=== PATIENT | female | born 1945 | race Caucasian/White ===

== ENCOUNTER 2019-08-31 17:20 | Inpatient (IN) ==
[2019-08-31] MEDS ORDERED: Dextrose Gel 15 GM/37.5 ML TUBE PO PRN ×2 (18:47)
[2019-08-31] MEDS ORDERED: *HR* Dextrose 50 % in Water (Syg) 50 ML SYRINGE IVP PRN (18:47)
[2019-08-31] MEDS ORDERED: D5% in Water 1,000 ML IVC PRN (18:47)
[2019-08-31] MEDS ORDERED: Insulin DETEMIR 100 UNIT/ML per UNIT SQ ONE (20:45)
[2019-08-31] MEDS: Metoprolol XL (24 HR) Succ 50 MG TAB.ER.24H PO SCH (21:15)
[2019-08-31] MEDS: Insulin LISPRO 300 UNITS/3 ML VIAL SQ SCH (21:15)
[2019-08-31] MEDS: Mirtazapine 15 MG TABLET PO SCH (21:15)
[2019-08-31] MEDS: *HR* Rivaroxaban 10 MG TABLET PO SCH (21:15)
[2019-08-31] MEDS: FLUoxetine 20 MG CAPSULE PO SCH (21:15)
[2019-08-31] MEDS: Carbidopa/Levodopa 25/100 TABLET PO SCH (21:15)
[2019-09-01 07:29] LABS: BUN/Creatinine Ratio 18 (6-26); Blood Urea Nitrogen 19 mg/dL (8-23); Carbon Dioxide 24 mEq/L (23-29); Chloride 107 mEq/L (98-107); Glucose 120 mg/dL (70-105); Osmolality,Calculated 291 (280-300); Potassium 3.4 mEq/L (3.5-5.1); Sodium 139 mEq/L (136-145); eGFR For African Americans > 60 (> 60); eGFR For Non-African Americans 50 (> 60)
[2019-09-01 07:31] LABS: Hematocrit 33.2 % (35.3-44.9); Hemoglobin 11.2 g/dL (11.5-15.4); Mean Corpuscular HGB Conc 33.7 g/dL (31.6-35.5); Mean Corpuscular Hemoglobin 29.3 pg (28.0-33.3); Mean Corpuscular Volume 86.9 fL (83.0-100.0); Nucleated Red Blood Cells 1.4 /100 WBC (0); Platelet Count 105 K/mcL (140-400); Red Blood Count 3.82 M/mcL (3.82-4.97); Red Cell Distribution Width 19.2 % (11.5-14.5); White Blood Count 5.9 K/mcL (4.3-11.1)
[2019-09-01] MEDS: Insulin LISPRO 300 UNITS/3 ML VIAL SQ SCH ×4 (07:39→19:37)
[2019-09-01 07:45] LABS: Prothrombin Time 20.7 Seconds (9.4-12.1)
[2019-09-01 07:46] LABS: Activated Partial Thrombo Time 41.1 Seconds (26.0-36.0); INR 1.8
[2019-09-01 07:57] LABS: Lymphocytes # 0.6 K/mcL (0.6-4.6); Monocytes # 0.1 K/mcL (0.0-1.3); Neutrophils # 5.1 K/mcL (1.6-8.9)
[2019-09-01 07:58] LABS: Anisocytosis 1+ (Not Present); Platelet Estimate Decreased (Normal)
[2019-09-01] MEDS: Carbidopa/Levodopa 25/100 TABLET PO SCH ×2 (08:20→19:38)
[2019-09-01] MEDS: Aspirin Enteric Coated 81 MG Tablet PO SCH (08:20)
[2019-09-01] MEDS: FLUoxetine 20 MG CAPSULE PO SCH ×2 (08:20→19:38)
[2019-09-01] MEDS ORDERED: *HR* Dextrose 50 % in Water (Vial) 50 ML VIAL IVP PRN (08:30)
[2019-09-01] MEDS: NIFEdipine XL (24 HR) 30 MG TAB.ER.24 PO SCH (17:24)
[2019-09-01] MEDS: Mirtazapine 15 MG TABLET PO SCH (19:38)
[2019-09-01] MEDS: *HR* Rivaroxaban 10 MG TABLET PO SCH (19:38)
[2019-09-01] MEDS: Metoprolol XL (24 HR) Succ 50 MG TAB.ER.24H PO SCH (19:38)
[2019-09-01] MEDS: Insulin DETEMIR 100 UNIT/ML X5UNITS SQ SCH (19:38)
[2019-09-02 07:15] LABS: Alanine Aminotransferase 2 Units/L (7-52); Albumin 2.9 g/dL (3.5-5.7); Albumin/Globulin Ratio 1.5 (1.1-2.2); Alkaline Phosphatase 57 Units/L (34-104); Aspartate Amino Transferase 15 Units/L (13-39); BUN/Creatinine Ratio 17 (6-26); Blood Urea Nitrogen 17 mg/dL (8-23); Calcium 6.7 mg/dL (8.6-10.3); Carbon Dioxide 24 mEq/L (23-29); Chloride 111 mEq/L (98-107); Globulin 1.9 g/dL (2.4-3.5); Glucose 89 mg/dL (70-105); Osmolality,Calculated 293 (280-300); Potassium 2.9 mEq/L (3.5-5.1); Sodium 141 mEq/L (136-145); Thyroid Stimulating Hormone 13.021 mcIU/mL (0.340-5.600); Total Protein 4.8 g/dL (6.4-8.9); Uric Acid 9.6 mg/dL (2.3-7.6); eGFR For African Americans > 60 (> 60); eGFR For Non-African Americans 53 (> 60)
[2019-09-02] MEDS: Insulin LISPRO 300 UNITS/3 ML VIAL SQ SCH ×4 (07:42→20:00)
[2019-09-02] MEDS: FLUoxetine 20 MG CAPSULE PO SCH ×2 (08:28→19:58)
[2019-09-02] MEDS: Aspirin Enteric Coated 81 MG Tablet PO SCH (08:28)
[2019-09-02] MEDS: Carbidopa/Levodopa 25/100 TABLET PO SCH ×2 (08:29→19:58)
[2019-09-02 09:10] LABS: Ferritin 200 ng/mL (10-120)
[2019-09-02 09:29] LABS: Estimated Average Glucose 189 mg/dl
[2019-09-02 12:17] LABS: Folate 18.4 ng/mL (3.0-16.0)
[2019-09-02] MEDS: *HR* Rivaroxaban 15 MG TABLET PO SCH (17:19)
[2019-09-02] MEDS: NIFEdipine XL (24 HR) 30 MG TAB.ER.24 PO SCH (17:19)
[2019-09-02] MEDS: Metoprolol XL (24 HR) Succ 50 MG TAB.ER.24H PO SCH (19:58)
[2019-09-02] MEDS: Mirtazapine 15 MG TABLET PO SCH (19:58)
[2019-09-02] MEDS: Insulin DETEMIR 100 UNIT/ML X5UNITS SQ SCH (19:59)
[2019-09-03 05:39] LABS: Basophils # 0.1 K/mcL (0.0-0.2); Basophils % 1.2 %; Eosinophils # 0.1 K/mcL (0.0-0.6); Eosinophils % 1.6 %; Hematocrit 30.1 % (35.3-44.9); Lymphocytes # 0.7 K/mcL (0.6-4.6); Lymphocytes % 13.4 %; Mean Corpuscular HGB Conc 33.2 g/dL (31.6-35.5); Mean Corpuscular Hemoglobin 29.1 pg (28.0-33.3); Mean Corpuscular Volume 87.5 fL (83.0-100.0); Monocytes # 0.3 K/mcL (0.0-1.3); Monocytes % 5.2 %; Neutrophils # 3.8 K/mcL (1.6-8.9); Nucleated Red Blood Cells 1.2 /100 WBC (0); Red Blood Count 3.44 M/mcL (3.82-4.97); Red Cell Distribution Width 19.9 % (11.5-14.5); Segmented Neutrophils % 73.6 %; White Blood Count 5.2 K/mcL (4.3-11.1)
[2019-09-03 05:42] LABS: Platelet Count 84 K/mcL (140-400)
[2019-09-03 06:12] LABS: BUN/Creatinine Ratio 16 (6-26); Blood Urea Nitrogen 17 mg/dL (8-23); Carbon Dioxide 23 mEq/L (23-29); Chloride 111 mEq/L (98-107); Glucose 98 mg/dL (70-105); Magnesium 1.5 mg/dL (1.6-2.6); Osmolality,Calculated 300 (280-300); Potassium 3.3 mEq/L (3.5-5.1); Sodium 144 mEq/L (136-145); eGFR For African Americans > 60 (> 60); eGFR For Non-African Americans 50 (> 60)
[2019-09-03] MEDS: Carbidopa/Levodopa 25/100 TABLET PO SCH ×2 (07:52→19:59)
[2019-09-03] MEDS: Aspirin Enteric Coated 81 MG Tablet PO SCH (07:52)
[2019-09-03] MEDS: FLUoxetine 20 MG CAPSULE PO SCH ×2 (07:53→19:59)
[2019-09-03] MEDS: Cholecalciferol (D-3) 1,000 UNIT (25MCG) TABLET PO SCH (07:53)
[2019-09-03] MEDS: Insulin LISPRO 300 UNITS/3 ML VIAL SQ SCH ×4 (07:57→20:00)
[2019-09-03] MEDS: *HR* Rivaroxaban 15 MG TABLET PO SCH (16:51)
[2019-09-03] MEDS: Magnesium Oxide 400 MG TABLET PO SCH (16:51)
[2019-09-03] MEDS: NIFEdipine XL (24 HR) 30 MG TAB.ER.24 PO SCH (16:51)
[2019-09-03] MEDS: Mirtazapine 15 MG TABLET PO SCH (19:59)
[2019-09-03] MEDS: Insulin DETEMIR 100 UNIT/ML X5UNITS SQ SCH (20:00)
[2019-09-03] MEDS: Metoprolol XL (24 HR) Succ 50 MG TAB.ER.24H PO SCH (20:05)
[2019-09-04 06:17] LABS: Basophils % 0.7 %; Eosinophils # 0.1 K/mcL (0.0-0.6); Eosinophils % 1.7 %; Hematocrit 24.6 % (35.3-44.9); Hemoglobin 8.1 g/dL (11.5-15.4); Immature Granulocytes % 6.3 % (0-4); Lymphocytes # 0.6 K/mcL (0.6-4.6); Lymphocytes % 14.9 %; Mean Corpuscular HGB Conc 32.9 g/dL (31.6-35.5); Mean Corpuscular Hemoglobin 29.2 pg (28.0-33.3); Mean Corpuscular Volume 88.8 fL (83.0-100.0); Monocytes # 0.2 K/mcL (0.0-1.3); Monocytes % 5.6 %; Neutrophils # 2.9 K/mcL (1.6-8.9); Red Blood Count 2.77 M/mcL (3.82-4.97); Red Cell Distribution Width 20.6 % (11.5-14.5); Segmented Neutrophils % 70.8 %; White Blood Count 4.1 K/mcL (4.3-11.1)
[2019-09-04 06:25] LABS: Platelet Count 72 K/mcL (140-400)
[2019-09-04 07:47] LABS: BUN/Creatinine Ratio 18 (6-26); Blood Urea Nitrogen 18 mg/dL (8-23); Calcium 6.9 mg/dL (8.6-10.3); Carbon Dioxide 22 mEq/L (23-29); Chloride 114 mEq/L (98-107); Glucose 109 mg/dL (70-105); Osmolality,Calculated 300 (280-300); Potassium 3.6 mEq/L (3.5-5.1); Sodium 144 mEq/L (136-145); eGFR For African Americans > 60 (> 60); eGFR For Non-African Americans 54 (> 60)
[2019-09-04 08:03] LABS: Platelet Estimate Decreased (Normal)
[2019-09-04] MEDS: Carbidopa/Levodopa 25/100 TABLET PO SCH ×2 (08:36→21:22)
[2019-09-04] MEDS: Aspirin Enteric Coated 81 MG Tablet PO SCH (08:36)
[2019-09-04] MEDS: Magnesium Oxide 400 MG TABLET PO SCH (08:36)
[2019-09-04] MEDS: FLUoxetine 20 MG CAPSULE PO SCH ×2 (08:36→21:21)
[2019-09-04] MEDS: Cholecalciferol (D-3) 1,000 UNIT (25MCG) TABLET PO SCH (08:36)
[2019-09-04] MEDS: Insulin LISPRO 300 UNITS/3 ML VIAL SQ SCH ×4 (08:37→21:22)
[2019-09-04] MEDS: *HR* Rivaroxaban 15 MG TABLET PO SCH (16:55)
[2019-09-04] MEDS: NIFEdipine XL (24 HR) 30 MG TAB.ER.24 PO SCH (16:55)
[2019-09-04] MEDS ORDERED: Acetaminophen 325 MG TABLET PO PRN (18:45)
[2019-09-04] MEDS: Mirtazapine 15 MG TABLET PO SCH (21:21)
[2019-09-04] MEDS: Insulin DETEMIR 100 UNIT/ML X5UNITS SQ SCH (21:22)
[2019-09-04] MEDS: Metoprolol XL (24 HR) Succ 50 MG TAB.ER.24H PO SCH (21:22)
[2019-09-05 07:01] LABS: Basophils % 0.8 %; Eosinophils # 0.1 K/mcL (0.0-0.6); Eosinophils % 1.3 %; Hematocrit 24.6 % (35.3-44.9); Hemoglobin 7.8 g/dL (11.5-15.4); Immature Granulocytes % 4.9 % (0-4); Lymphocytes # 0.7 K/mcL (0.6-4.6); Lymphocytes % 18.4 %; Mean Corpuscular HGB Conc 31.7 g/dL (31.6-35.5); Mean Corpuscular Volume 91.4 fL (83.0-100.0); Monocytes # 0.3 K/mcL (0.0-1.3); Neutrophils # 2.6 K/mcL (1.6-8.9); Nucleated Red Blood Cells 2.6 /100 WBC (0); Platelet Count 126 K/mcL (140-400); Red Blood Count 2.69 M/mcL (3.82-4.97); Segmented Neutrophils % 67.6 %; White Blood Count 3.9 K/mcL (4.3-11.1)
[2019-09-05 07:12] LABS: Platelet Estimate Normal (Normal)
[2019-09-05 07:39] LABS: Alanine Aminotransferase 3 Units/L (7-52); Albumin 3.3 g/dL (3.5-5.7); Albumin/Globulin Ratio 1.7 (1.1-2.2); Alkaline Phosphatase 65 Units/L (34-104); Aspartate Amino Transferase 22 Units/L (13-39); BUN/Creatinine Ratio 20 (6-26); Bilirubin,Total 2.2 mg/dL (0.3-1.0); Blood Urea Nitrogen 20 mg/dL (8-23); Calcium 7.1 mg/dL (8.6-10.3); Carbon Dioxide 23 mEq/L (23-29); Chloride 113 mEq/L (98-107); Glucose 101 mg/dL (70-105); Magnesium 1.6 mg/dL (1.6-2.6); Osmolality,Calculated 301 (280-300); Sodium 144 mEq/L (136-145); Total Protein 5.3 g/dL (6.4-8.9); eGFR For African Americans > 60 (> 60); eGFR For Non-African Americans 53 (> 60)
[2019-09-05] MEDS: Insulin LISPRO 300 UNITS/3 ML VIAL SQ SCH ×4 (08:09→20:24)
[2019-09-05] MEDS: Cholecalciferol (D-3) 1,000 UNIT (25MCG) TABLET PO SCH (08:26)
[2019-09-05] MEDS: Carbidopa/Levodopa 25/100 TABLET PO SCH ×2 (08:26→20:34)
[2019-09-05] MEDS: Magnesium Oxide 400 MG TABLET PO SCH (08:27)
[2019-09-05] MEDS: FLUoxetine 20 MG CAPSULE PO SCH ×2 (08:27→20:34)
[2019-09-05] MEDS: Aspirin Enteric Coated 81 MG Tablet PO SCH (08:28)
[2019-09-05] MEDS: NIFEdipine XL (24 HR) 30 MG TAB.ER.24 PO SCH (17:30)
[2019-09-05] MEDS: *HR* Rivaroxaban 15 MG TABLET PO SCH (17:31)
[2019-09-05] MEDS: Mirtazapine 15 MG TABLET PO SCH (20:34)
[2019-09-05] MEDS: Insulin DETEMIR 100 UNIT/ML X5UNITS SQ SCH (20:34)
[2019-09-05] MEDS: Metoprolol XL (24 HR) Succ 50 MG TAB.ER.24H PO SCH (20:35)
[2019-09-06 05:27] LABS: Basophils % 0.8 %; Eosinophils % 1.1 %; Hemoglobin 7.1 g/dL (11.5-15.4); Immature Granulocytes % 3.6 % (0-4); Lymphocytes # 0.7 K/mcL (0.6-4.6); Lymphocytes % 20.4 %; Mean Corpuscular HGB Conc 32.3 g/dL (31.6-35.5); Mean Corpuscular Hemoglobin 29.3 pg (28.0-33.3); Mean Corpuscular Volume 90.9 fL (83.0-100.0); Monocytes # 0.3 K/mcL (0.0-1.3); Monocytes % 8.3 %; Neutrophils # 2.4 K/mcL (1.6-8.9); Nucleated Red Blood Cells 2.5 /100 WBC (0); Red Blood Count 2.42 M/mcL (3.82-4.97); Red Cell Distribution Width 22.4 % (11.5-14.5); Segmented Neutrophils % 65.8 %; White Blood Count 3.6 K/mcL (4.3-11.1)
[2019-09-06 05:28] LABS: Platelet Count 79 K/mcL (140-400)
[2019-09-06 05:44] LABS: Alanine Aminotransferase 4 Units/L (7-52); Albumin 3.2 g/dL (3.5-5.7); Albumin/Globulin Ratio 1.7 (1.1-2.2); Alkaline Phosphatase 61 Units/L (34-104); Aspartate Amino Transferase 21 Units/L (13-39); BUN/Creatinine Ratio 22 (6-26); Bilirubin,Total 1.5 mg/dL (0.3-1.0); Blood Urea Nitrogen 22 mg/dL (8-23); Calcium 7.2 mg/dL (8.6-10.3); Carbon Dioxide 25 mEq/L (23-29); Chloride 112 mEq/L (98-107); Globulin 1.9 g/dL (2.4-3.5); Glucose 158 mg/dL (70-105); Osmolality,Calculated 303 (280-300); Sodium 143 mEq/L (136-145); Total Protein 5.1 g/dL (6.4-8.9); eGFR For African Americans > 60 (> 60); eGFR For Non-African Americans 54 (> 60)
[2019-09-06 05:51] LABS: Anisocytosis 2+ (Not Present); Microcytosis Present (Not Present); Ovalocytes 2+ (Not Present); Tear Drop Cells 1+ (Not Present)
[2019-09-06 05:52] LABS: Platelet Estimate Decreased (Normal)
[2019-09-06] MEDS: Insulin LISPRO 300 UNITS/3 ML VIAL SQ SCH ×4 (08:34→20:39)
[2019-09-06] MEDS: Cholecalciferol (D-3) 1,000 UNIT (25MCG) TABLET PO SCH (08:35)
[2019-09-06] MEDS: Magnesium Oxide 400 MG TABLET PO SCH (08:35)
[2019-09-06] MEDS: Carbidopa/Levodopa 25/100 TABLET PO SCH ×2 (08:35→20:38)
[2019-09-06] MEDS: FLUoxetine 20 MG CAPSULE PO SCH ×2 (08:35→20:38)
[2019-09-06] MEDS: NIFEdipine XL (24 HR) 30 MG TAB.ER.24 PO SCH (17:09)
[2019-09-06] MEDS: *HR* Rivaroxaban 15 MG TABLET PO SCH (17:09)
[2019-09-06] MEDS: Mirtazapine 15 MG TABLET PO SCH (20:38)
[2019-09-06] MEDS: Metoprolol XL (24 HR) Succ 50 MG TAB.ER.24H PO SCH (20:38)
[2019-09-06] MEDS: Insulin DETEMIR 100 UNIT/ML X5UNITS SQ SCH (20:39)
[2019-09-07 06:39] LABS: Basophils % 0.8 %; Eosinophils % 1.1 %; Hematocrit 21.9 % (35.3-44.9); Hemoglobin 7.1 g/dL (11.5-15.4); Immature Granulocytes % 4.9 % (0-4); Lymphocytes # 0.7 K/mcL (0.6-4.6); Lymphocytes % 18.2 %; Mean Corpuscular HGB Conc 32.4 g/dL (31.6-35.5); Mean Corpuscular Volume 92.4 fL (83.0-100.0); Monocytes # 0.2 K/mcL (0.0-1.3); Monocytes % 6.3 %; Neutrophils # 2.5 K/mcL (1.6-8.9); Nucleated Red Blood Cells 2.2 /100 WBC (0); Red Blood Count 2.37 M/mcL (3.82-4.97); Red Cell Distribution Width 22.5 % (11.5-14.5); Segmented Neutrophils % 68.7 %; White Blood Count 3.7 K/mcL (4.3-11.1)
[2019-09-07 06:44] LABS: Platelet Count 83 K/mcL (140-400)
[2019-09-07 07:42] LABS: Anisocytosis 2+ (Not Present); Microcytosis Present (Not Present)
[2019-09-07 07:43] LABS: Platelet Estimate Decreased (Normal)
[2019-09-07 07:47] LABS: Polychromasia 1+ (Not Present)
[2019-09-07 07:48] LABS: Ovalocytes 1+ (Not Present)
[2019-09-07 07:50] LABS: Tear Drop Cells 1+ (Not Present)
[2019-09-07] MEDS: Cholecalciferol (D-3) 1,000 UNIT (25MCG) TABLET PO SCH (08:04)
[2019-09-07] MEDS: Magnesium Oxide 400 MG TABLET PO SCH (08:05)
[2019-09-07] MEDS: Carbidopa/Levodopa 25/100 TABLET PO SCH ×2 (08:05→19:59)
[2019-09-07] MEDS: FLUoxetine 20 MG CAPSULE PO SCH ×2 (08:05→19:59)
[2019-09-07] MEDS: Insulin LISPRO 300 UNITS/3 ML VIAL SQ SCH ×4 (08:07→19:59)
[2019-09-07] MEDS: *HR* Rivaroxaban 15 MG TABLET PO SCH (17:01)
[2019-09-07] MEDS: NIFEdipine XL (24 HR) 30 MG TAB.ER.24 PO SCH (17:01)
[2019-09-07] MEDS: Insulin DETEMIR 100 UNIT/ML X5UNITS SQ SCH (19:59)
[2019-09-07] MEDS: Metoprolol XL (24 HR) Succ 50 MG TAB.ER.24H PO SCH (19:59)
[2019-09-07] MEDS: Mirtazapine 15 MG TABLET PO SCH (19:59)
[2019-09-08 07:04] LABS: Basophils % 1.1 %; Eosinophils % 1.1 %; Hematocrit 22.2 % (35.3-44.9); Hemoglobin 7.1 g/dL (11.5-15.4); Lymphocytes # 0.7 K/mcL (0.6-4.6); Lymphocytes % 18.5 %; Mean Corpuscular Hemoglobin 29.8 pg (28.0-33.3); Mean Corpuscular Volume 93.3 fL (83.0-100.0); Monocytes # 0.2 K/mcL (0.0-1.3); Monocytes % 4.3 %; Neutrophils # 2.5 K/mcL (1.6-8.9); Nucleated Red Blood Cells 3.4 /100 WBC (0); Red Blood Count 2.38 M/mcL (3.82-4.97); Red Cell Distribution Width 23.2 % (11.5-14.5); White Blood Count 3.5 K/mcL (4.3-11.1)
[2019-09-08 07:14] LABS: Platelet Count 93 K/mcL (140-400)
[2019-09-08 07:21] LABS: Albumin 3.4 g/dL (3.5-5.7); Albumin/Globulin Ratio 1.8 (1.1-2.2); Bilirubin,Total 1.3 mg/dL (0.3-1.0); Calcium 7.6 mg/dL (8.6-10.3); Globulin 1.9 g/dL (2.4-3.5); Magnesium 1.8 mg/dL (1.6-2.6); Total Protein 5.3 g/dL (6.4-8.9)
[2019-09-08 07:39] LABS: Platelet Estimate Decreased (Normal)
[2019-09-08 07:40] LABS: Anisocytosis 2+ (Not Present)
[2019-09-08 07:41] LABS: Hypochromasia Present (Not Present); Microcytosis Present (Not Present)
[2019-09-08] MEDS: Insulin LISPRO 300 UNITS/3 ML VIAL SQ SCH ×3 (08:55→16:02)
[2019-09-08] MEDS: Magnesium Oxide 400 MG TABLET PO SCH (09:33)
[2019-09-08] MEDS: FLUoxetine 20 MG CAPSULE PO SCH (09:33)
[2019-09-08] MEDS: Carbidopa/Levodopa 25/100 TABLET PO SCH (09:34)
[2019-09-08] MEDS: Cholecalciferol (D-3) 1,000 UNIT (25MCG) TABLET PO SCH (09:34)
[2019-09-08] MEDS: NIFEdipine XL (24 HR) 30 MG TAB.ER.24 PO SCH (16:47)
[2019-09-08 18:17] VITALS: BP 140/64
== END 2019-09-08 18:30 | disposition home health service (06) | DRG 57 ==
LOC: INPPIK 17:45
PROVIDERS: ADMIT Internal Medicine; ATTEND Internal Medicine

== ENCOUNTER 2019-10-22 14:15 | Inpatient (IN) ==
[2019-10-22] MEDS: Insulin LISPRO 300 UNITS/3 ML VIAL SQ SCH (17:13)
[2019-10-22] MEDS: Carbidopa/Levodopa 25/100 TABLET PO SCH ×2 (17:16→19:57)
[2019-10-22] MEDS: *HR* Rivaroxaban 15 MG TABLET PO SCH (17:16)
[2019-10-22] MEDS: Aspirin Enteric Coated 81 MG Tablet PO SCH (19:56)
[2019-10-22] MEDS: Insulin DETEMIR 100 UNIT/ML X5UNITS SQ SCH (19:57)
[2019-10-22] MEDS: FLUoxetine 20 MG CAPSULE PO SCH (19:59)
[2019-10-23] MEDS: Insulin LISPRO 300 UNITS/3 ML VIAL SQ SCH ×3 (07:49→16:43)
[2019-10-23 07:54] LABS: Basophils % 0.6 %; Eosinophils # 0.1 K/mcL (0.0-0.6); Eosinophils % 1.5 %; Hematocrit 29.1 % (35.3-44.9); Hemoglobin 9.1 g/dL (11.5-15.4); Immature Granulocytes % 1.5 % (0-4); Lymphocytes # 0.4 K/mcL (0.6-4.6); Lymphocytes % 12.9 %; Mean Corpuscular HGB Conc 31.3 g/dL (31.6-35.5); Mean Corpuscular Hemoglobin 31.4 pg (28.0-33.3); Mean Corpuscular Volume 100.3 fL (83.0-100.0); Monocytes # 0.2 K/mcL (0.0-1.3); Monocytes % 5.1 %; Neutrophils # 2.6 K/mcL (1.6-8.9); Platelet Count 108 K/mcL (140-400); Red Cell Distribution Width 17.1 % (11.5-14.5); Segmented Neutrophils % 78.4 %; White Blood Count 3.3 K/mcL (4.3-11.1)
[2019-10-23 08:14] LABS: Calcium 7.2 mg/dL (8.6-10.3); Potassium 4.3 mEq/L (3.5-5.1)
[2019-10-23] MEDS: Spironolactone 25 MG TABLET PO SCH (09:08)
[2019-10-23] MEDS: Carbidopa/Levodopa 25/100 TABLET PO SCH ×3 (09:08→20:25)
[2019-10-23] MEDS: NIFEdipine XL (24 HR) 30 MG TAB.ER.24 PO SCH (09:09)
[2019-10-23] MEDS: FLUoxetine 20 MG CAPSULE PO SCH ×2 (09:09→20:25)
[2019-10-23] MEDS: Cholecalciferol (D-3) 1,000 UNIT (25MCG) TABLET PO SCH (09:09)
[2019-10-23] MEDS: Furosemide 20 MG TABLET PO SCH (09:09)
[2019-10-23] MEDS: Magnesium Oxide 400 MG TABLET PO SCH (09:09)
[2019-10-23] MEDS: *HR* Rivaroxaban 15 MG TABLET PO SCH (16:43)
[2019-10-23] MEDS: Aspirin Enteric Coated 81 MG Tablet PO SCH (20:25)
[2019-10-23] MEDS: Insulin DETEMIR 100 UNIT/ML X5UNITS SQ SCH (20:26)
[2019-10-24] MEDS: Insulin LISPRO 300 UNITS/3 ML VIAL SQ SCH ×3 (07:19→17:09)
[2019-10-24] MEDS: NIFEdipine XL (24 HR) 30 MG TAB.ER.24 PO SCH (08:44)
[2019-10-24] MEDS: Cholecalciferol (D-3) 1,000 UNIT (25MCG) TABLET PO SCH (08:45)
[2019-10-24] MEDS: FLUoxetine 20 MG CAPSULE PO SCH ×2 (08:45→22:30)
[2019-10-24] MEDS: Magnesium Oxide 400 MG TABLET PO SCH (08:46)
[2019-10-24] MEDS: Carbidopa/Levodopa 25/100 TABLET PO SCH ×3 (08:46→22:30)
[2019-10-24] MEDS: Furosemide 20 MG TABLET PO SCH (08:46)
[2019-10-24] MEDS: Spironolactone 25 MG TABLET PO SCH (08:47)
[2019-10-24] MEDS: *HR* Rivaroxaban 15 MG TABLET PO SCH (17:09)
[2019-10-24] MEDS: Aspirin Enteric Coated 81 MG Tablet PO SCH (22:30)
[2019-10-24] MEDS: Insulin DETEMIR 100 UNIT/ML X5UNITS SQ SCH (22:30)
[2019-10-25] MEDS: Insulin LISPRO 300 UNITS/3 ML VIAL SQ SCH ×3 (08:40→16:55)
[2019-10-25] MEDS: Carbidopa/Levodopa 25/100 TABLET PO SCH ×3 (09:37→21:10)
[2019-10-25] MEDS: Cholecalciferol (D-3) 1,000 UNIT (25MCG) TABLET PO SCH (09:38)
[2019-10-25] MEDS: FLUoxetine 20 MG CAPSULE PO SCH ×2 (09:38→16:55)
[2019-10-25] MEDS: Magnesium Oxide 400 MG TABLET PO SCH (09:38)
[2019-10-25] MEDS: Furosemide 20 MG TABLET PO SCH (09:38)
[2019-10-25] MEDS: NIFEdipine XL (24 HR) 30 MG TAB.ER.24 PO SCH (09:38)
[2019-10-25] MEDS: Spironolactone 25 MG TABLET PO SCH (09:38)
[2019-10-25] MEDS: *HR* Rivaroxaban 15 MG TABLET PO SCH (16:55)
[2019-10-25] MEDS: Aspirin Enteric Coated 81 MG Tablet PO SCH (21:10)
[2019-10-25] MEDS: Insulin DETEMIR 100 UNIT/ML X5UNITS SQ SCH (21:10)
[2019-10-26] MEDS: Carbidopa/Levodopa 25/100 TABLET PO SCH ×3 (08:10→20:36)
[2019-10-26] MEDS: FLUoxetine 20 MG CAPSULE PO SCH ×2 (08:10→17:40)
[2019-10-26] MEDS: NIFEdipine XL (24 HR) 30 MG TAB.ER.24 PO SCH (08:10)
[2019-10-26] MEDS: Spironolactone 25 MG TABLET PO SCH (08:10)
[2019-10-26] MEDS: Cholecalciferol (D-3) 1,000 UNIT (25MCG) TABLET PO SCH (08:10)
[2019-10-26] MEDS: Furosemide 20 MG TABLET PO SCH (08:10)
[2019-10-26] MEDS: Magnesium Oxide 400 MG TABLET PO SCH (08:10)
[2019-10-26] MEDS: Insulin LISPRO 300 UNITS/3 ML VIAL SQ SCH ×3 (08:11→17:32)
[2019-10-26 09:55] LABS: Hematocrit 31.7 % (35.3-44.9); Hemoglobin 10.3 g/dL (11.5-15.4); Mean Corpuscular HGB Conc 32.5 g/dL (31.6-35.5); Mean Corpuscular Hemoglobin 31.6 pg (28.0-33.3); Mean Corpuscular Volume 97.2 fL (83.0-100.0); Platelet Count 132 K/mcL (140-400); Red Blood Count 3.26 M/mcL (3.82-4.97); Red Cell Distribution Width 16.8 % (11.5-14.5); White Blood Count 3.8 K/mcL (4.3-11.1)
[2019-10-26 10:20] LABS: BUN/Creatinine Ratio 18 (6-26); Blood Urea Nitrogen 19 mg/dL (8-23); Calcium 7.8 mg/dL (8.6-10.3); Carbon Dioxide 30 mEq/L (23-29); Chloride 103 mEq/L (98-107); Glucose 103 mg/dL (70-105); Osmolality,Calculated 293 (280-300); Potassium 3.9 mEq/L (3.5-5.1); Sodium 140 mEq/L (136-145); eGFR For African Americans > 60 (> 60); eGFR For Non-African Americans 50 (> 60)
[2019-10-26] MEDS: *HR* Rivaroxaban 15 MG TABLET PO SCH (17:01)
[2019-10-26] MEDS: Insulin DETEMIR 100 UNIT/ML X5UNITS SQ SCH (20:36)
[2019-10-26] MEDS: Aspirin Enteric Coated 81 MG Tablet PO SCH (20:36)
[2019-10-27 06:54] VITALS: BP 157/84
[2019-10-27] MEDS: NIFEdipine XL (24 HR) 30 MG TAB.ER.24 PO SCH (09:34)
[2019-10-27] MEDS: Cholecalciferol (D-3) 1,000 UNIT (25MCG) TABLET PO SCH (09:34)
[2019-10-27] MEDS: Spironolactone 25 MG TABLET PO SCH (09:34)
[2019-10-27] MEDS: Furosemide 20 MG TABLET PO SCH (09:34)
[2019-10-27] MEDS: Carbidopa/Levodopa 25/100 TABLET PO SCH (09:34)
[2019-10-27] MEDS: Magnesium Oxide 400 MG TABLET PO SCH (09:34)
[2019-10-27] MEDS: FLUoxetine 20 MG CAPSULE PO SCH (09:34)
[2019-10-27] MEDS: Insulin LISPRO 300 UNITS/3 ML VIAL SQ SCH ×2 (09:35→12:32)
== END 2019-10-27 14:15 | disposition home or self-care (01) | DRG 946 ==
LOC: INPPIK 14:16
PROVIDERS: ADMIT Family Medicine; ATTEND Family Medicine

== ENCOUNTER 2019-12-01 14:10 | Inpatient (IN) ==
[2019-12-01] MEDS ORDERED: *HR* OxyCODONE/APAP 5/325 TABLET PO PRN (15:05)
[2019-12-01] MEDS ORDERED: *HR* Dextrose 50 % in Water (Vial) 50 ML VIAL IVP PRN (17:33)
[2019-12-01] MEDS ORDERED: D5% in Water 1,000 ML IVC PRN (17:33)
[2019-12-01] MEDS ORDERED: Dextrose Gel 15 GM/37.5 ML TUBE PO PRN ×2 (17:33)
[2019-12-01] MEDS: *HR* Rivaroxaban 15 MG TABLET PO SCH (19:59)
[2019-12-01] MEDS: Mirtazapine 15 MG TABLET PO SCH (19:59)
[2019-12-01] MEDS: tiZANidine 4 MG TABLET PO SCH (20:00)
[2019-12-01] MEDS ORDERED: FLUoxetine 20 MG CAPSULE PO SCH (21:00)
[2019-12-01] MEDS ORDERED: Insulin DETEMIR 100 UNIT/ML per UNIT SQ ONE (21:00)
[2019-12-02 07:13] LABS: Basophils % 0.8 %; Eosinophils # 0.1 K/mcL (0.0-0.6); Eosinophils % 2.1 %; Hematocrit 30.6 % (35.3-44.9); Hemoglobin 9.3 g/dL (11.5-15.4); Immature Granulocytes % 0.6 % (0-4); Lymphocytes # 0.6 K/mcL (0.6-4.6); Lymphocytes % 10.6 %; Mean Corpuscular HGB Conc 30.4 g/dL (31.6-35.5); Mean Corpuscular Hemoglobin 31.8 pg (28.0-33.3); Mean Corpuscular Volume 104.8 fL (83.0-100.0); Monocytes # 0.3 K/mcL (0.0-1.3); Monocytes % 5.5 %; Neutrophils # 4.2 K/mcL (1.6-8.9); Platelet Count 121 K/mcL (140-400); Red Blood Count 2.92 M/mcL (3.82-4.97); Red Cell Distribution Width 17.8 % (11.5-14.5); Segmented Neutrophils % 80.4 %; White Blood Count 5.3 K/mcL (4.3-11.1)
[2019-12-02 07:39] LABS: BUN/Creatinine Ratio 31 (6-26); Blood Urea Nitrogen 34 mg/dL (8-23); Carbon Dioxide 28 mEq/L (23-29); Chloride 106 mEq/L (98-107); Glucose 91 mg/dL (70-105); Osmolality,Calculated 303 (280-300); Potassium 4.5 mEq/L (3.5-5.1); Sodium 143 mEq/L (136-145); eGFR For African Americans > 60 (> 60); eGFR For Non-African Americans 50 (> 60)
[2019-12-02] MEDS: tiZANidine 4 MG TABLET PO SCH ×2 (08:30→20:53)
[2019-12-02] MEDS: Furosemide 20 MG TABLET PO SCH (08:30)
[2019-12-02] MEDS: Spironolactone 25 MG TABLET PO SCH (08:30)
[2019-12-02] MEDS: Magnesium Oxide 400 MG TABLET PO SCH (08:31)
[2019-12-02] MEDS: Cholecalciferol (D-3) 1,000 UNIT (25MCG) TABLET PO SCH (08:41)
[2019-12-02] MEDS: FLUoxetine 20 MG CAPSULE PO SCH ×2 (08:41→17:01)
[2019-12-02] MEDS ORDERED: Bisoprolol/HCTZ 5/6.25 TABLET PO SCH (09:00)
[2019-12-02] MEDS ORDERED: Acetaminophen 325 MG TABLET PO PRN (10:40)
[2019-12-02] MEDS: Insulin LISPRO 300 UNITS/3 ML VIAL SQ SCH ×3 (11:45→20:54)
[2019-12-02] MEDS: *HR* Rivaroxaban 15 MG TABLET PO SCH (17:01)
[2019-12-02] MEDS: Mirtazapine 15 MG TABLET PO SCH (20:52)
[2019-12-02] MEDS: Insulin DETEMIR 100 UNIT/ML X5UNITS SQ SCH (20:54)
[2019-12-03] MEDS: Insulin LISPRO 300 UNITS/3 ML VIAL SQ SCH ×4 (07:30→21:07)
[2019-12-03] MEDS: Magnesium Oxide 400 MG TABLET PO SCH (08:42)
[2019-12-03] MEDS: Cholecalciferol (D-3) 1,000 UNIT (25MCG) TABLET PO SCH (08:42)
[2019-12-03] MEDS: tiZANidine 4 MG TABLET PO SCH ×2 (08:42→21:06)
[2019-12-03] MEDS: Spironolactone 25 MG TABLET PO SCH (08:42)
[2019-12-03] MEDS: Furosemide 20 MG TABLET PO SCH (08:43)
[2019-12-03] MEDS ORDERED: Bisoprolol/HCTZ 5/6.25 TABLET PO SCH (09:00)
[2019-12-03] MEDS: FLUoxetine 20 MG CAPSULE PO SCH ×2 (11:03→18:16)
[2019-12-03] MEDS: *HR* Rivaroxaban 15 MG TABLET PO SCH (17:31)
[2019-12-03] MEDS: Mirtazapine 15 MG TABLET PO SCH (21:06)
[2019-12-03] MEDS: Insulin DETEMIR 100 UNIT/ML X5UNITS SQ SCH (21:07)
[2019-12-04] MEDS: tiZANidine 4 MG TABLET PO SCH ×2 (07:59→20:55)
[2019-12-04] MEDS: Cholecalciferol (D-3) 1,000 UNIT (25MCG) TABLET PO SCH (08:00)
[2019-12-04] MEDS: Spironolactone 25 MG TABLET PO SCH (08:00)
[2019-12-04] MEDS: Magnesium Oxide 400 MG TABLET PO SCH (08:00)
[2019-12-04] MEDS: Furosemide 20 MG TABLET PO SCH (08:00)
[2019-12-04] MEDS: FLUoxetine 20 MG CAPSULE PO SCH ×2 (08:01→19:21)
[2019-12-04] MEDS: Insulin LISPRO 300 UNITS/3 ML VIAL SQ SCH ×4 (09:32→20:52)
[2019-12-04] MEDS: Ipratropium/Albuterol Neb 3 ML IH SCH ×3 (11:26→21:09)
[2019-12-04 12:05] LABS: Hematocrit 29.7 % (35.3-44.9); Hemoglobin 8.8 g/dL (11.5-15.4); Mean Corpuscular HGB Conc 29.6 g/dL (31.6-35.5); Mean Corpuscular Hemoglobin 31.5 pg (28.0-33.3); Mean Corpuscular Volume 106.5 fL (83.0-100.0); Platelet Count 105 K/mcL (140-400); Red Blood Count 2.79 M/mcL (3.82-4.97); Red Cell Distribution Width 18.1 % (11.5-14.5); White Blood Count 4.3 K/mcL (4.3-11.1)
[2019-12-04 12:08] LABS: Calcium 6.9 mg/dL (8.6-10.3); Potassium 4.6 mEq/L (3.5-5.1)
[2019-12-04] MEDS: *HR* Rivaroxaban 15 MG TABLET PO SCH (17:16)
[2019-12-04] MEDS ORDERED: MethylPREDNISolone 40 MG/ML VIAL IVP SCH (18:00)
[2019-12-04] MEDS: Insulin DETEMIR 100 UNIT/ML X5UNITS SQ SCH (20:52)
[2019-12-04] MEDS: Mirtazapine 15 MG TABLET PO SCH (20:55)
[2019-12-05] MEDS: Ipratropium/Albuterol Neb 3 ML IH SCH ×5 (00:42→16:36)
[2019-12-05] MEDS ORDERED: predniSONE 20 MG TABLET PO SCH (09:00)
[2019-12-05] MEDS: Cholecalciferol (D-3) 1,000 UNIT (25MCG) TABLET PO SCH (09:07)
[2019-12-05] MEDS: Magnesium Oxide 400 MG TABLET PO SCH (09:07)
[2019-12-05] MEDS: Spironolactone 25 MG TABLET PO SCH (09:07)
[2019-12-05] MEDS: Insulin LISPRO 300 UNITS/3 ML VIAL SQ SCH ×3 (09:07→17:45)
[2019-12-05] MEDS: FLUoxetine 20 MG CAPSULE PO SCH ×2 (09:07→17:44)
[2019-12-05] MEDS: tiZANidine 4 MG TABLET PO SCH (09:07)
[2019-12-05] MEDS: Furosemide 20 MG TABLET PO SCH (09:07)
[2019-12-05] MEDS ORDERED: 0.9 % Sodium Chloride 1,000 ML ONE (17:11)
[2019-12-05 17:13] LABS: Basophils % 0.7 %; Hematocrit 32.5 % (35.3-44.9); Hemoglobin 9.9 g/dL (11.5-15.4); Immature Granulocytes % 0.7 % (0-4); Lymphocytes # 0.3 K/mcL (0.6-4.6); Lymphocytes % 4.5 %; Mean Corpuscular HGB Conc 30.5 g/dL (31.6-35.5); Mean Corpuscular Hemoglobin 31.8 pg (28.0-33.3); Mean Corpuscular Volume 104.5 fL (83.0-100.0); Monocytes # 0.1 K/mcL (0.0-1.3); Monocytes % 1.9 %; Neutrophils # 5.3 K/mcL (1.6-8.9); Nucleated Red Blood Cells 0.5 /100 WBC (0); Platelet Count 115 K/mcL (140-400); Red Blood Count 3.11 M/mcL (3.82-4.97); Red Cell Distribution Width 18.1 % (11.5-14.5); Segmented Neutrophils % 92.2 %; White Blood Count 5.8 K/mcL (4.3-11.1)
[2019-12-05 17:15] LABS: INR 1.5; Prothrombin Time 16.9 Seconds (9.4-12.1)
[2019-12-05] MEDS ORDERED: DILTIAZEM IVP ONE (17:15)
[2019-12-05] MEDS ORDERED: DilTIAZem 125 MG in D5% in Water 100 ML IVC SCH (17:15)
[2019-12-05] MEDS ORDERED: SODIUM CHLORIDE 0.9% IVP ONE (17:15)
[2019-12-05 17:21] LABS: Calcium 7.2 mg/dL (8.6-10.3); Magnesium 2.1 mg/dL (1.6-2.6); Potassium 5.6 mEq/L (3.5-5.1)
[2019-12-05 17:38] LABS: Thyroid Stimulating Hormone 1.555 mcIU/mL (0.340-5.600)
[2019-12-05] MEDS ORDERED: Calcium Gluconate 1,000 MG/10 ML VIAL IVPB ONE (17:47)
[2019-12-05] MEDS ORDERED: 0.9 % Sodium Chloride 1,000 ML IV SCH (18:00)
[2019-12-05] MEDS: *HR* Rivaroxaban 15 MG TABLET PO SCH (18:46)
[2019-12-05] MEDS ORDERED: Naloxone 0.4 MG/ML INJ IVP PRN (18:50)
[2019-12-05 19:16] VITALS: BP 115/66
[2019-12-05] MEDS ORDERED: Insulin LISPRO 300 UNITS/3 ML VIAL SQ SCH ×2 (21:00)
[2019-12-05 21:03] LABS: Estimated Average Glucose 128 mg/dl
[2019-12-06] MEDS ORDERED: Insulin LISPRO 300 UNITS/3 ML VIAL SQ SCH (07:30)
== END 2019-12-05 19:27 | disposition short-term general hospital (02) | DRG 57 ==
LOC: INPPIK 17:48
PROVIDERS: ADMIT Family Medicine; ATTEND Family Medicine

== ENCOUNTER 2019-12-05 19:13 | Inpatient (IN) ==
[2019-12-05] MEDS ORDERED: *HR* OxyCODONE/APAP 5/325 TABLET PO PRN (19:31)
[2019-12-05] MEDS ORDERED: Naloxone 0.4 MG/ML INJ IVP PRN (19:40)
[2019-12-05] MEDS ORDERED: Ondansetron 4 MG/2 ML VIAL IVP PRN (19:40)
[2019-12-05] MEDS ORDERED: Mag Hydrox/Al Hydrox/Simeth 30 ML UDC PO PRN (19:40)
[2019-12-05] MEDS ORDERED: D5% in Water 1,000 ML IVC PRN (19:43)
[2019-12-05] MEDS ORDERED: Dextrose Gel 15 GM/37.5 ML TUBE PO PRN ×2 (19:43)
[2019-12-05] MEDS ORDERED: *HR* Dextrose 50 % in Water (Syg) 50 ML SYRINGE IVP PRN (19:43)
[2019-12-05] MEDS ORDERED: 0.9 % Sodium Chloride 1,000 ML IV SCH (19:45)
[2019-12-05] MEDS: Insulin LISPRO 300 UNITS/3 ML VIAL SQ SCH (21:24)
[2019-12-05] MEDS: FLUoxetine 20 MG CAPSULE PO SCH (21:25)
[2019-12-05] MEDS: tiZANidine 4 MG TABLET PO SCH (21:25)
[2019-12-05] MEDS: 0.9 % Sodium Chloride 1,000 ML IVC SCH (21:56)
[2019-12-06] MEDS: 0.9 % Sodium Chloride 1,000 ML IVC SCH (04:51)
[2019-12-06] MEDS ORDERED: Levalbuterol Neb 0.63 MG/3 ML IH ONE (05:39)
[2019-12-06 05:44] LABS: ABG Base Excess -5 mEq/L (-2 to 3); ABG HCO3 19 mEq/L (21-27); ABG Oxygen Saturation 99 % (95-98); ABG PCO2 32 mmHg (35-45); ABG PH 7.39 pH Units (7.32-7.45); ABG PO2 150 mmHg (85-104); ABG TCO2 20 mEq/L (20-26)
[2019-12-06] MEDS ORDERED: Calcium Gluconate 1gm/50mL 1 GM/50 ML BAG IVPB ONE (06:00)
[2019-12-06] MEDS: FLUoxetine 20 MG CAPSULE PO SCH ×2 (08:03→16:36)
[2019-12-06] MEDS: Mirtazapine 15 MG TABLET PO SCH (08:04)
[2019-12-06] MEDS: tiZANidine 4 MG TABLET PO SCH ×2 (08:04→20:05)
[2019-12-06] MEDS: Insulin LISPRO 300 UNITS/3 ML VIAL SQ SCH ×4 (08:04→20:06)
[2019-12-06] MEDS: Cholecalciferol (D-3) 1,000 UNIT (25MCG) TABLET PO SCH (08:05)
[2019-12-06 09:03] LABS: Basophils # 0.1 K/mcL (0.0-0.2); Basophils % 0.6 %; Eosinophils % 0.1 %; Hematocrit 33.4 % (35.3-44.9); Hemoglobin 10.2 g/dL (11.5-15.4); Immature Granulocytes % 1.3 % (0-4); Lymphocytes # 0.5 K/mcL (0.6-4.6); Mean Corpuscular HGB Conc 30.5 g/dL (31.6-35.5); Mean Corpuscular Hemoglobin 32.1 pg (28.0-33.3); Monocytes # 0.3 K/mcL (0.0-1.3); Monocytes % 4.4 %; Neutrophils # 6.8 K/mcL (1.6-8.9); Nucleated Red Blood Cells 0.5 /100 WBC (0); Platelet Count 147 K/mcL (140-400); Red Blood Count 3.18 M/mcL (3.82-4.97); Red Cell Distribution Width 18.1 % (11.5-14.5); Segmented Neutrophils % 87.6 %; White Blood Count 7.8 K/mcL (4.3-11.1)
[2019-12-06 09:24] LABS: Calcium 7.4 mg/dL (8.6-10.3); Potassium 5.7 mEq/L (3.5-5.1)
[2019-12-06 09:25] LABS: Magnesium 2.2 mg/dL (1.6-2.6); Phosphorous 6.2 mg/dL (2.7-4.5)
[2019-12-06 09:30] LABS: Troponin I 0.04 ng/mL (< 0.04)
[2019-12-06] MEDS ORDERED: methylPREDNISolone 125 MG/2 ML VIAL IVP ONE (09:33)
[2019-12-06] MEDS ORDERED: *HR* Dextrose 50 % in Water (Vial) 50 ML VIAL IVP PRN (09:45)
[2019-12-06 09:52] LABS: Albumin 3.7 g/dL (3.5-5.7); Albumin/Globulin Ratio 1.5 (1.1-2.2); Bilirubin,Direct 0.2 mg/dL (0.0-0.2); Bilirubin,Indirect 0.7 mg/dL (0.0-1.0); Bilirubin,Total 0.9 mg/dL (0.3-1.0); Globulin 2.4 g/dL (2.4-3.5); Total Protein 6.1 g/dL (6.4-8.9)
[2019-12-06] MEDS: Levalbuterol Neb 0.63 MG/3 ML IH SCH ×3 (10:17→22:34)
[2019-12-06] MEDS: *HR* Rivaroxaban 15 MG TABLET PO SCH (16:32)
[2019-12-06] MEDS: MethylPREDNISolone 40 MG/ML VIAL IVP SCH ×2 (16:32→16:54)
[2019-12-07] MEDS: MethylPREDNISolone 40 MG/ML VIAL IVP SCH ×4 (01:28→17:12)
[2019-12-07] MEDS: Levalbuterol Neb 0.63 MG/3 ML IH SCH ×4 (04:38→22:03)
[2019-12-07] MEDS: tiZANidine 4 MG TABLET PO SCH ×2 (08:44→19:59)
[2019-12-07] MEDS: Mirtazapine 15 MG TABLET PO SCH (08:45)
[2019-12-07] MEDS: Cholecalciferol (D-3) 1,000 UNIT (25MCG) TABLET PO SCH (08:45)
[2019-12-07] MEDS: Insulin LISPRO 300 UNITS/3 ML VIAL SQ SCH ×4 (08:45→19:58)
[2019-12-07] MEDS: FLUoxetine 20 MG CAPSULE PO SCH ×2 (08:51→17:26)
[2019-12-07 09:23] LABS: Basophils % 0.2 %; Hematocrit 31.3 % (35.3-44.9); Hemoglobin 9.5 g/dL (11.5-15.4); Immature Granulocytes % 1.7 % (0-4); Lymphocytes # 0.3 K/mcL (0.6-4.6); Lymphocytes % 4.2 %; Mean Corpuscular HGB Conc 30.4 g/dL (31.6-35.5); Mean Corpuscular Hemoglobin 31.6 pg (28.0-33.3); Monocytes # 0.1 K/mcL (0.0-1.3); Monocytes % 1.2 %; Neutrophils # 7.5 K/mcL (1.6-8.9); Platelet Count 145 K/mcL (140-400); Red Blood Count 3.01 M/mcL (3.82-4.97); Red Cell Distribution Width 17.8 % (11.5-14.5); Segmented Neutrophils % 92.7 %; White Blood Count 8.1 K/mcL (4.3-11.1)
[2019-12-07 09:35] LABS: Calcium 7.4 mg/dL (8.6-10.3)
[2019-12-07] MEDS ORDERED: Benzonatate 100 MG CAPSULE PO PRN (09:55)
[2019-12-07] MEDS ORDERED: 0.9 % Sodium Chloride 1,000 ML IV ONE (12:54)
[2019-12-07] MEDS: 0.9 % Sodium Chloride 1,000 ML IV SCH ×2 (14:45→23:45)
[2019-12-07] MEDS: *HR* Rivaroxaban 15 MG TABLET PO SCH (17:21)
[2019-12-08] MEDS: MethylPREDNISolone 40 MG/ML VIAL IVP SCH ×3 (00:14→12:02)
[2019-12-08] MEDS: Levalbuterol Neb 0.63 MG/3 ML IH SCH ×2 (04:03→10:53)
[2019-12-08 07:23] LABS: Hematocrit 30.9 % (35.3-44.9); Hemoglobin 9.3 g/dL (11.5-15.4); Immature Granulocytes % 1.7 % (0-4); Lymphocytes # 0.2 K/mcL (0.6-4.6); Lymphocytes % 3.6 %; Mean Corpuscular HGB Conc 30.1 g/dL (31.6-35.5); Mean Corpuscular Hemoglobin 31.4 pg (28.0-33.3); Mean Corpuscular Volume 104.4 fL (83.0-100.0); Monocytes # 0.1 K/mcL (0.0-1.3); Monocytes % 1.4 %; Neutrophils # 5.5 K/mcL (1.6-8.9); Platelet Count 123 K/mcL (140-400); Red Blood Count 2.96 M/mcL (3.82-4.97); Red Cell Distribution Width 17.4 % (11.5-14.5); Segmented Neutrophils % 93.3 %; White Blood Count 5.9 K/mcL (4.3-11.1)
[2019-12-08 07:46] LABS: Calcium 6.6 mg/dL (8.6-10.3); Potassium 4.2 mEq/L (3.5-5.1)
[2019-12-08] MEDS ORDERED: Insulin LISPRO 300 UNITS/3 ML VIAL SQ SCH ×2 (08:05→21:00)
[2019-12-08] MEDS ORDERED: Furosemide 40 MG/4 ML VIAL IVP ONE (08:33)
[2019-12-08] MEDS: Cholecalciferol (D-3) 1,000 UNIT (25MCG) TABLET PO SCH (08:46)
[2019-12-08] MEDS: Mirtazapine 15 MG TABLET PO SCH (08:47)
[2019-12-08] MEDS: tiZANidine 4 MG TABLET PO SCH (08:49)
[2019-12-08] MEDS: FLUoxetine 20 MG CAPSULE PO SCH (08:51)
[2019-12-08] MEDS: Insulin LISPRO 300 UNITS/3 ML VIAL SQ SCH (09:47)
[2019-12-08 10:27] VITALS: BP 155/83
[2019-12-08] MEDS ORDERED: Insulin DETEMIR 100 UNIT/ML X5UNITS SQ SCH (21:00)
== END 2019-12-08 13:30 | disposition other institution (70) | DRG 308 ==
LOC: INPPIK
PROVIDERS: ADMIT Family Medicine; ATTEND Family Medicine